=== PATIENT | male | born 1955 | race Caucasian/White ===

== ENCOUNTER 2016-08-15 13:20 | Inpatient (IN) | payer BC ==
[~2016-08-15] VITALS: Ht 167.6 cm; Wt 57.7 kg
[~2016-08-15 13:20] MED LIST: NOVOLOG100 UNIT/2 SQ; POTASSIUM CHLO20 ME1 PO
[2016-08-17] MEDS ORDERED: ZOFRAN ODT8 MG PO (13:38)
--- NOTE | 2016-08-18 12:44 | ER ---
ADMIT: 08/15/2016 RM/LOC: 401 [facility] MR#: [id number] [address] [address] [place] [address] [place] [address] Emergency Room Report SEX: M AGE: 60 : 1955 DATE: 08/15/2016 SUBJECTIVE: The patient is a 60-year-old male with a past medical history of diabetes and multiple DKA, who came to the ER with a chief complaint of dry duration; feeling dry, nausea and vomiting for the last day. The patient states he could not keep anything down either solids or liquids. The patient denies any abdominal pain or fever or chest pain or shortness of breath. PHYSICAL EXAMINATION: GENERAL: In the ER, the patient was in mild-to- moderate distress, lying in bed. The patient was mildly tachycardic and was afebrile. VITAL SIGNS: Blood pressure was normal with 130/94. HEAD AND NECK: Mucous membranes are dry. Pupils are normal and reactive to light, 3 mm bilaterally. CHEST: Clear bilaterally without any crackles. HEART: Normal heart sounds. No extra murmurs or gallops. ABDOMEN: Soft and nontender. No guarding with normal bowel sounds. Rest of the physical exam is noncontributory. The patient was started on Reglan 10 mg IV and IV fluids 1 L normal saline bolus. LABORATORY DATA: Lab work showed the patient had blood sugar of 117 and bicarbonate was mildly decreased to 20, and also the patient had small serum ketones with borderline anion gap. Lactic acid was 2.4 and creatinine level was 2.2 which is elevated from 0.6 as the last creatinine level. Also the BUN was elevated to 36 with an early diagnosis of acute kidney injury, possibly prerenal. The patient was started on second liter of normal saline bolus. This could be also the beginning of the early diabetic ketoacidosis versus dehydration and fasting. Internal Medicine was consulted. The patient was admitted for further followups and treatments. Villa Rankin MD/ maribel JOB #: [id number] CC: Ruddy Connor MD, Attending Physician Ruddy Connor MD, Family Physician
--- NOTE | 2016-09-05 08:37 | DS ---
ADMIT: 08/15/2016 RM/LOC: 401 [facility] MR#: [id number] [address] [address] [place] [address] [address] [place] [address] Discharge Summary SEX: M AGE: 60 : 1955 ADMISSION DATE: 08/15/2016 DISCHARGE DATE: 08/16/2016 DIAGNOSES: 1. Diabetic ketoacidosis. 2. Acute kidney injury. 3. Diabetes type 1. 4. Nausea and vomiting-resolved. 5. Elevated total bilirubin. 6. Dehydration. 7. Elevated lactic acid. 8. Hypokalemia. PROCEDURES: None. CONSULTS: None. REASON FOR HOSPITALIZATION: Nausea, vomiting and feeling poorly. See dictated H and P. LABORATORY AND X-RAY DATA: Sodium 144, potassium 4.5 down to 3.6, chloride 112, CO2 is 21, BUN was 36 down to 17, creatinine 2.2 down to 0.9, blood sugars variable, see chart. Calcium 7.6, phosphorus 1.4, total bilirubin was 1.7, total protein 5.9, albumin 3.1, alkaline phosphatase 44, AST 22, ALT 27, lipase 210, magnesium 2.7. GFR was initially 32 up to 93. CPK 61, CK-MB 1.6, relative index 2.6 with a troponin of less than 0.015. Ketones were small. INR less than 1. PTT 24.7. White count 13.7 down to 8.5, hemoglobin 17.9 down to 12.4 with hydration, platelets 155. Lactic acid on admission was 3.7 down to 0.7. A1c 8.1. Urine was nitrite negative, etc. Chest x-ray was taken and did not look unusual to me but await official report. COURSE IN THE HOSPITAL: Ramiro was admitted through the emergency room with early DKA. He appeared to be pretty dehydrated. Renal insufficiency was a bit concerning. He was resuscitated with large volumes of fluid and began to feel better. By the following morning, his renal function had returned to normal. There was some question if his needle was bent again. He will look ADMIT: 08/15/2016 RM/LOC: 401 [facility] MR#: [id number] [address] [address] [place] [address] [address] [address] Discharge Summary SEX: M AGE: 60 : 1955 at the pump when his brings in the supplies. We do not believe that his sugars are coming down as quickly or as affectively when he takes the bolus for his meals. He will monitor this through the course of the morning prior to being discharged. My other question for him is whether the insulin in the reservoir is bad if it was exposed to maybe extreme temperatures with him working. He will be due to fill this again so we will see if that helps. At this time, he is much improved. I did give him some Zofran to have on hand should he have this again which will allow him to possibly drink fluids and prevent return. Also supplement his potassium for the next month. He will see Dr. Connor in 2-3 weeks. Overall, he is much improved. Time spent was 20 minutes. Judy Shepard MD/ danelle JOB #: [id number] CC: Ruddy Connor MD, Attending Physician Ruddy Connor MD, Family Physician
--- NOTE | 2016-09-22 01:21 | HP ---
ADMIT: 08/15/2016 RM/LOC: 401 [facility] MR#: [id number] [facility]#: [id number] [address] [facility] [address] [place] [id number] [place] [address] [address] [place] [address] History and Physical SEX: M AGE: 60 : 1955 DATE OF SERVICE: CHIEF COMPLAINT: Nausea with early diabetic ketoacidosis. HISTORY OF PRESENT ILLNESS: Rios is a 61-year-old white male, with type 1 diabetes, who started feeling poorly on 08/13/2016. Was not able to keep anything down. He has a pump. Not able to get his sugars down. Thought there was some malfunction. He changed the apparatus and continued to have problems. He had a Pen with NovoLog and started using that hourly. Unfortunately, he continued to feel poorly. Sugars started to come down, but he was nauseated. He presented to the emergency room as instructed and his lactic acid was noted to be elevated. He was noted to be in early DKA. Fluids were administered with insulin and he did feel improved. He was still pretty nauseated. He is admitted at this time for care of his early DKA. PAST MEDICAL HISTORY: Type 1 diabetes 8 months ago. MEDICATIONS: Include his insulin pump. ALLERGIES: NONE KNOWN. SOCIAL HISTORY: He is . He farms. Drinks occasionally. FAMILY HISTORY: Mother with hyperlipidemia. Father is with an aortic valve disorder and prostate cancer. REVIEW OF SYSTEMS: Nausea, vomiting, and just does not feel well. PHYSICAL EXAMINATION: VITAL SIGNS: Per nursing. GENERAL: This is a well-developed, well-nourished, white male, who is actually doing much improved after having received IV fluids. SKIN: Warm and dry. HEENT: Normocephalic, atraumatic. Anicteric. Mucous membranes are moist. NECK: Supple. LUNGS: Clear. ABDOMEN: Soft. AND RECTAL: Deferred. EXTREMITIES: Without edema. NEURO: No neurologic deficits. ADMIT: 08/15/2016 RM/LOC: 401 [facility] MR#: [id number] [address] [address] [place] [address] [address] [place] [address] History and Physical SEX: M AGE: 60 : 1955 IMPRESSION: 1. Early diabetic ketoacidosis. 2. Type 1 diabetes. 3. Elevated total bilirubin. 4. Acute kidney injury-suspect dehydration. PLAN: 1. IV fluids. 2. Insulin. 3. Follow lactic acid. 4. See chart. Judy Shepard MD/ modl JOB #: [id number] CC: Judy Shepard MD, Attending Physician Ruddy Connor MD, Family Physician
== END 2016-08-16 09:00 | disposition home or self-care (01) | DRG 638 ==
LOC: ER 13:20 → 4PCU 16:20
PROVIDERS: ADMIT Internal Medicine
DX: E10.10 Type 1 diabetes mellitus with ketoacidosis without coma (principal); N17.9 Acute kidney failure, unspecified; E86.0 Dehydration; E87.6 Hypokalemia; Z96.41 Presence of insulin pump (external) (internal)